=== PATIENT | female | born 1990 | race Hispanic/Latino ===

== ENCOUNTER 2017-06-19 10:50 | Emergency (ER) | payer OTHER | END 2017-06-19 12:09 | disposition home or self-care (01) | LOC: EDH 10:50 | DX: S00.03XA Contusion of scalp, initial encounter (principal); Z88.7 Allergy status to serum and vaccine; W18.39XA Other fall on same level, initial encounter; Y93.89 Activity, other specified; Y92.098 Other place in other non-institutional residence as the place of occurrence of the external cause; Y99.8 Other external cause status | CPT/HCPCS: 99281 ==

== ENCOUNTER 2018-09-05 00:10 | Emergency (ER) | payer SELFPAY ==
[2018-09-05 00:53] LABS: APPEARANCE,URINE CLEAR (CLEAR); BILIRUBIN,URINE NEGATIVE (NEGATIVE); COLOR,URINE YELLOW (YELLOW); GLUCOSE, URINE (UA) NEGATIVE (NEGATIVE); KETONES,URINE 15 mg/dL (NEGATIVE); LEUKOCYTE ESTERASE ,URINE NEGATIVE (NEGATIVE); NITRATE,URINE NEGATIVE (NEGATIVE); OCCULT BLOOD,URINE NEGATIVE (NEGATIVE); PH,URINE 8.5 (5.0-8.0); PROTEIN,URINE 30 mg/dL (NEGATIVE); UROBILINOGEN,URINE 0.2 mg/dL (0.2-1.0)
[2018-09-05 00:58] LABS: HCG,QUAL RESULT NEGATIVE (NEGATIVE)
[2018-09-05 01:02] LABS: BACTERIA,URINE Few /HPF (None Seen); RBC,URINE 0-1 /HPF (0-1); WBC,URINE 0-1 /HPF (0-1)
[2018-09-05] MEDS ORDERED: METOCLOPRAMIDE 10 MG/2 ML VIAL ONE (01:28)
[2018-09-05] MEDS ORDERED: SODIUM CHLORIDE 0.9% 1000ML 2,000 ML IV ONE (01:29)
[2018-09-05] MEDS ORDERED: ONDANSETRON HCL 4 MG/2 ML VIAL ONE (01:29)
[2018-09-05] MEDS ORDERED: DiphenhydrAMINE HCL 50 MG/ML VIAL ONE (01:29)
[2018-09-05] MEDS ORDERED: SODIUM CHLORIDE 0.9% 1000ML 1,000 ML IV ONE (02:10)
[2018-09-05] MEDS ORDERED: ACETAMINOPHEN EXTRA STRENGTH 500 MG TABLET ONE (03:27)
== END 2018-09-05 03:35 | disposition home or self-care (01) ==
LOC: EDH 00:10
DX: E86.9 Volume depletion, unspecified (principal); R11.2 Nausea with vomiting, unspecified; R19.7 Diarrhea, unspecified; Z88.7 Allergy status to serum and vaccine; Z98.890 Other specified postprocedural states
CPT/HCPCS: 81001; 81025; 96361; 96374; 96375; 99284; J1200; J2405; J2765; J7030 ×2